=== PATIENT | male | born 1980 | race Caucasian/White ===

== ENCOUNTER 2017-10-18 11:58 | Emergency (ER) | payer OTHER ==
[2017-10-18 12:53] VITALS: BP 139/66; PULSE 72; O2SAT 98
--- NOTE | 2017-10-18 13:11 | ERPHSYRPT ---
- History of Present Illness Time Seen by Provider: 10/18/17 13:01 Source: patient Patient Subjective Stated Complaint: Pt states "I have had this problem for about 5 years and it is getting worse recently. There is something wrong with my right shoulder. My shoulderblade pops out of my back farther and it really hurts." Triage Nursing Assessment: Pt alert and oriented X 3, skin pwd. PT ambulates with an upright steady gait, able to speak in clear full sentences. PT CSM X 4 , right shoulder tender to touch. Physician History: CC: right shoulder pain HX: 37 y/o patient recently moved here from [place]. He is getting . He and his 16 y/o son moved here with his father. He has been on spice and drugs. Has been off for a few weeks. He was in the hospital a few weeks ago. He has pain in right shoulder. He has winging of the right scapula. This has been going on for 5 years. No new or known injury. He did not know where to go for help so came here. Declines pain meds here. No N/T/W. Extremities Pain Location: shoulder: right Allergies/Adverse Reactions: No Known Drug Allergies Allergy (Unverified 10/18/17 12:53) Home Medications: No Reportable Medications [No Reported Medications] 10/18/17 [History] Hx Tetanus, Diphtheria Vaccination/Date Given: Yes Hx Influenza Vaccination/Date Given: No Hx Pneumococcal Vaccination/Date Given: No Immunizations Up to Date: Yes - Review of Systems Constitutional: No Symptoms, No Fever, No Chills Musculoskeletal: Joint Pain (right shoulder), No Back Pain, No Neck Pain Neurological: No Focal Weakness, No Parasthesia - Past Medical History Pertinent Past Medical History: No - Past Surgical History Past Surgical History: Yes Other Surgical History: right leg reconstruction - Social History Smoking Status: Current every day smoker How long have you smoked: years Exposure to second hand smoke: Yes Drug Use: none Patient Lives Alone: No - Nursing Vital Signs Nursing Vital Signs: Initial Vital Signs Temperature 98.2 F 10/18/17 12:48 Pulse Rate 72 10/18/17 12:48 Respiratory Rate 16 10/18/17 12:48 Blood Pressure 139/66 10/18/17 12:48 O2 Sat by Pulse Oximetry 98 10/18/17 12:48 Pain Scale Pain Intensity 9 - Physical Exam General Appearance: alert Eyes, Ears, Nose, Throat Exam: moist mucous membranes Neck Exam: normal inspection, non-tender, supple Cardiovascular/Respiratory Exam: chest non-tender, normal breath sounds, regular rate/rhythm Abdominal Exam: non-tender, soft Back Exam: normal inspection, No vertebral tenderness Elbow/Forearm Exam: normal inspection, non-tender, no evidence of injury Wrist Exam: normal inspection, non-tender, no evidence of injury Hand Exam: normal inspection, non-tender, no evidence of injury Neuro/Tendon Exam: normal sensation, normal motor functions Mental Status Exam: alert, oriented x 3, cooperative Skin Exam: warm, dry SpO2: 98 Oxygen Delivery: Room Air Comments: He has some tenderness at medial scapular edge and has mild scapular winging. ROM intact in right shoulder. Pulses intact. No GH joint tenderness, redness, or swelling. - Course Nursing assessment & vital signs reviewed: Yes - Progress Progress Note: 10/18/17 13:09 He has no new problem. declines meds here. Offered shoulder xray but he declines. He would rather follow up with a shoulder specialist. Instr given. Counseled pt/family regarding: diagnosis, need for follow-up - Departure Time of Disposition: 13:10 Departure Disposition: Home Clinical Impression: Winged scapula of right side Condition: Stable Critical Care Time: No Referrals: EVER ERAZO MD [COURTESY STAFF] - MILTON RODRIGUEZ [ACTIVE STAFF] - Instructions: Winged Scapula (DC) Additional Instructions: Ice if needed off and on. Ibuprofen as directed. Follow up with orthopedist of your choice.
== END 2017-10-18 13:21 | disposition home or self-care (01) ==
LOC: ED 11:58
DX: M95.8 Other specified acquired deformities of musculoskeletal system (principal); Z72.0 Tobacco use
CPT/HCPCS: 99281